=== PATIENT | female | born 1965 | race African-American/Black ===

== ENCOUNTER 2019-03-23 09:15 | Emergency (ER) | payer MEDICAID ==
[2019-03-23 09:23] VITALS: BP 125/66
--- NOTE | 2019-03-23 09:25 | ED Physician Documentation ---
History of Present Illness - Stated complaint Stated Complaint: CONCERNS - Chief complaint Chief Complaint: General - Additonal information Additional information: This is a 53-year-old female with a history of fibroids who presents requesting STD testing. Patient states that she has not been sexually active since 2002 at which time she was extracted with one male partner. She denies having history of sexual transmitted infections, she denies any itching, burning, abdominal pain, dysuria. She states that her ex-boyfriend and her family have been spreading rumors that she is positive for HIV, and so she is hoping to get testing for HIV and other STIs today. [facility] and [place] and she was told that getting this testing done the emergency department would be the most expeditious way of obtaining results. Review of Systems Constitutional: denies: Fever : denies: Dysuria PD PAST MEDICAL HISTORY - Past Medical History Psych: Anxiety - Allergies Allergies/Adverse Reactions: Allergies Allergy/AdvReac Type Severity Reaction Status Date / Time No Known Drug Allergies Allergy Verified 03/23/19 09:20 - Living Situation Living Arrangement: reports: Homeless - Family History Family history: reports: Non contributory PD ED PE NORMAL - Vitals Vital signs reviewed: Yes - General General: Alert and oriented X 3 - HEENT HEENT: Atraumatic - Neck Neck: Supple, no meningeal sign - Cardiac Cardiac: RRR - Respiratory Respiratory: No respiratory distress, Clear bilaterally - Abdomen Abdomen: Non tender, Non distended - Extremities Extremities: No deformity - Neuro Neuro: Alert and oriented X 3 Results - Vitals Vitals: Vital Signs - 24 hr 03/23/19 09:20 Temperature 36.5 C Heart Rate 76 Respiratory 16 Rate Blood Pressure 125/66 O2 Saturation 100 Oxygen O2 Source Room air PD MEDICAL DECISION MAKING - ED course ED course: Patient presents she is asymptomatic but was hoping to get sexually transmitted infection testing today. Her main Reason for having testing done is to stop rumors of her being positive for HIV. She has had not had any testing recently. I explained to her that given she is asymptomatic this would be better to obtained with her primary care provider, but she has not established with 1 and she is currently undomiciled, so we will perform the testing today. I explained that the results will be delayed and that should be called if they are positive but she should call back to check on the results herself to make sure that nothing is lost. We will not do any empiric treatment given that she has not any recent exposures or symptoms. She has not been sexually active since 2002. Patient agrees this plan. She was unable to provide an adequate urine sample, but is most concerned about her HIV status - HIV and treponemal tests drawn. GC/chlam can be run on urine in the future or with her PCP or public health. I discussed return precautions and she was discharged home. Departure - Departure Disposition: 01 Home, Self Care Condition: Good Comments: We have drawn tests today checking for sexually transmitted infections. You should be called if any of these return positive in the next several days. It is a good idea to double check on these results yourself, please establish with a primary care provider as soon as possible. If you are developing new symptoms return to the emergency department. Discharge Date/Time: 03/23/19 10:25
[2019-03-24 14:05] LABS: HIV AG/AB 4TH GEN NON-REACTIVE (NON-REACTIVE)
== END 2019-03-23 10:25 | disposition home or self-care (01) ==
LOC: ED 09:15
DX: Z11.4 Encounter for screening for human immunodeficiency virus [HIV] (principal)
CPT/HCPCS: 36415; 86780; 87389; 87491; 87591; 87661; 99283

== ENCOUNTER 2019-04-11 07:02 | Emergency (ER) | payer MEDICAID ==
--- NOTE | 2019-04-11 07:31 | ED Physician Documentation ---
History of Present Illness - Stated complaint Stated Complaint: FEMALE - Chief complaint Chief Complaint: General - History obtained from History obtained from: Patient - Additonal information Additional information: This is a 53-year-old woman who presents with complaints that she was seen a few weeks ago to be tested for HIV "and others". She wanted a gonorrhea and chlamydia test as well but when she got her test results back she realized that she had only had blood test for syphilis and HIV. They never sent the urine sample she provided for the gonorrhea and chlamydia. She is concerned because that she started researching on the Internet that these infections can go "dormant" and you can be completely asymptomatic. She is not having any discharge, dysuria, abdominal pain or fever. She is not even currently sexually active but she said people are spreading rumors about her that she has these infections and is spreading them around to other people. 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 Review of Systems GI: denies: Abdominal Pain : denies: Dysuria, Frequency, Discharge Skin: denies: Rash PD PAST MEDICAL HISTORY - Past Medical History Psych: Anxiety - Allergies Allergies/Adverse Reactions: Allergies Allergy/AdvReac Type Severity Reaction Status Date / Time No Known Drug Allergies Allergy Verified 04/11/19 07:17 PD ED PE NORMAL - Vitals Vital signs reviewed: Yes - General General: Alert and oriented X 3, No acute distress, Well developed/nourished - HEENT HEENT: Atraumatic, PERRL - Respiratory Respiratory: No respiratory distress - Derm Derm: Normal color, Warm and dry - Neuro Neuro: Alert and oriented X 3, Normal speech - Psych Psych: Normal mood, Normal affect Results - Vitals Vitals: Vital Signs - 24 hr 04/11/19 07:06 Temperature 36.9 C Heart Rate 88 Respiratory 17 Rate Blood Pressure 120/83 H O2 Saturation 99 Oxygen O2 Source Room air PD MEDICAL DECISION MAKING - ED course Complexity details: d/w patient ED course: We did review on the computer together her syphilis and and HIV screening that was negative. There is no gonorrhea or chlamydia test results so we have collected a urine specimen will send that. She is aware it could be several days to a week before those test results are available. She states understanding. Departure - Departure Disposition: 01 Home, Self Care Clinical Impression: Concern about sexually transmitted disease in female without diagnosis Condition: Good Follow-Up: [facility] [Provider Group] Comments: It will be several days to a week before your test results will be available. If you test positive we will contact you for treatment.
[2019-04-11 07:50] VITALS: BP 124/83
[2019-04-11 22:32] LABS: TRICHOMONAS VAGINALIS DNA NEGATIVE (NEGATIVE)
== END 2019-04-11 07:51 | disposition home or self-care (01) ==
LOC: ED 07:02
DX: Z20.2 Contact with and (suspected) exposure to infections with a predominantly sexual mode of transmission (principal)
CPT/HCPCS: 87491; 87591; 87661; 99282; 99283